=== PATIENT | male | born 1980 | race Two or more races ===

== ENCOUNTER 2025-09-01 08:14 | Emergency (ER) | payer SELFPAY ==
[2025-09-01 08:50] LABS: BASE EXCESS VENOUS 2.7 (-4.0-2.0); BASOPHILS ABSOLUTE AUTO 0.0 K/mm3 (0.0-0.2); BASOPHILS PERCENT AUTO 0.5 % (0.0-1.0); BICARBONATE,VENOUS 29.0 meq/L (22-26); EOSINOPHILS ABSOLUTE AUTO 0.2 K/mm3 (0.0-0.4); EOSINOPHILS PERCENT AUTO 3.7 % (0.0-6.0); IMMATURE GRAN ABSOLUTE AUTO 0.02 K/mm3 (0.00-0.05); IMMATURE GRAN PERCENT AUTO 0.3 % (0.0-0.4); LYMPHOCYTES ABSOLUTE AUTO 2.7 K/mm3 (1.0-4.8); LYMPHOCYTES PERCENT AUTO 40.4 % (24.0-44.0); MEAN PLATELET VOLUME 9.7 fl (9.4-12.4); MONOCYTES ABSOLUTE AUTO 0.5 K/mm3 (0.0-0.8); MONOCYTES PERCENT AUTO 6.9 % (0.0-8.0); NEUTROPHILS ABSOLUTE AUTO 3.2 K/mm3 (1.8-7.7); NEUTROPHILS PERCENT AUTO 48.2 % (41.0-71.0); NRBC ABSOLUTE 0.00 (0.00-0.02); NRBC PERCENT 0.0 % (0.0-0.2); O2 SATURATION VENOUS 58.1; PCO2 VENOUS 49.0 mmHg (41-51); PH,VENOUS 7.38 (7.30-7.40); PLATELET COUNT,PLT 309 K/mm3 (150-400); PO2 VENOUS 34.0 mmHG (40-80); RED BLOOD CELL COUNT 5.60 M/mm3 (4.52-5.90); WHITE BLOOD CELL COUNT,WBC 6.56 K/mm3 (3.9-11.3)
[2025-09-01 09:02] LABS: APPEARANCE,URINE CLEAR (Clear); GLUCOSE,URINE 3+ (Negative); OCCULT BLOOD,URINE NEGATIVE (Negative)
[2025-09-01 09:08] LABS: EPITHELIAL CELLS,URINE 0-5 /hpf (0-5)
[2025-09-01 09:12] LABS: BUPRENORPHINE SCREEN,URINE NEGATIVE (CUTOFF=10); METHADONE SCREEN, URINE NEGATIVE (CUT0FF=200); METHAMPHETAMINES SCREEN, URINE NEGATIVE (CUTOFF=500); OXYCODONE SCREEN,URINE NEGATIVE (CUT0FF=100); THC SCREEN,URINE 20 NG/ML NEGATIVE (CUTOFF=50)
[2025-09-01 09:25] LABS: A/G RATIO 1.1 (1-2); ALANINE AMINOTRANSFERASE,ALT 69.0 U/L (16-63); ASPARTATE AMNIOTRANSFERASE,AST 18.0 U/L (15-37); BILIRUBIN TOTAL 0.5 mg/dL (0.2-1.0); BLOOD UREA NITROGEN,BUN 20.0 mg/dL (7-18); CARBON DIOXIDE,CO2 30.0 mEq/L (21-32); CHLORIDE,CL 100.0 mEq/L (98-107); CHOLESTEROL HDL 54.0 mg/dL (40-59); CHOLESTEROL LDL DIRECT 135.0 mg/dL (<100); CHOLESTEROL TOTAL 222.0 mg/dL (<200); CREATINE KINASE,CK 85.0 U/L (39-308); CREATININE 1.1 mg/dL (0.7-1.3); EST CRCL DRUG DOSING (CG) 76.27 mL/min; ESTIMATED GFR 83.0 mL/min (>60); GLUCOSE RANDOM 245.0 mg/dL (70-99); POTASSIUM,K 4.8 mEq/L (3.5-5.1); PROTEIN TOTAL,TP 8.0 g/dl (6.4-8.2); SODIUM,NA 138.0 mEq/L (136-145); TSH 2.286 uIU/mL (0.358-3.74)
[2025-09-01 10:05] LABS: AMPHETAMINES SCREEN, URINE NEGATIVE (CUTOFF=500)
== END 2025-09-01 10:15 | disposition home or self-care (01) ==
LOC: JD.ED 08:14
DX: E11.65 Type 2 diabetes mellitus with hyperglycemia (principal); I10 Essential (primary) hypertension; E78.5 Hyperlipidemia, unspecified; E83.42 Hypomagnesemia; Z79.899 Other long term (current) drug therapy
CPT/HCPCS: 36415; 80053; 80061; 80306; 81001; 82010; 82550; 82803; 83036; 83735; 84443; 85025; 96360; 99284; A9270; J7030